=== PATIENT | male | born 1940 | race Asian ===

== ENCOUNTER 2018-03-20 05:37 | Inpatient (IN) | payer OTHER ==
[~2018-03-20] VITALS: Ht 170.2 cm; Wt 71.3 kg
[2018-03-20 05:43] VITALS: Ht 170.2 cm; Wt 71.3 kg
[2018-03-20] MEDS ORDERED: LOSARTAN POTAS100 M1 PO (06:44)
[2018-03-20] MEDS ORDERED: LIPI20 PO (06:45)
[2018-03-20] MEDS ORDERED: ALLOPURINOL100 MG PO (06:45)
[2018-03-20] MEDS ORDERED: FUROSEMIDE20 MG PO (06:45)
[2018-03-20] MEDS ORDERED: METFORMIN HYDR500 M1 PO (06:46)
[2018-03-20] MEDS ORDERED: ASPIR 8181 MG PO (06:46)
[2018-03-20] MEDS ORDERED: ALDACTONE25 MG PO (06:47)
[2018-03-20] MEDS ORDERED: METOPROLOL SUCC50 M2 PO (06:47)
[2018-03-20] MEDS ORDERED: GLUCOTROL10 MG (06:48)
[2018-03-20] MEDS ORDERED: GLUCOTROL10 MG PO (06:48)
[2018-03-20] MEDS ORDERED: TOPROL XL100 MG PO (06:49)
[2018-03-20] MEDS ORDERED: DOXAZOSIN MESYLA1 MG PO (06:50)
[2018-03-20] MEDS ORDERED: ELIQUIS5 MG PO (06:50)
[2018-03-20 06:51] LABS: CALCIUM 8.1 mg/dL (8.5-10.1); CARBON DIOXIDE 27.2 mmol/L (21-32); CHLORIDE SERUM 105 mmol/L (98-107); CREATININE SERUM 1.3 mg/dL (0.7-1.3); GLUCOSE SERUM 110 mg/dL (74-106); POTASSIUM SERUM 3.7 mmol/L (3.5-5.1); SODIUM SERUM 143 mmol/L (136-145)
[2018-03-20 06:56] LABS: ALBUMIN 3.5 g/dL (3.4-5.0); ALKALINE PHOSPHATASE 84 U/L (46-116); ALT/SGPT 34 U/L (16-63); AST/SGOT 34 U/L (15-37); BILIRUBIN TOTAL 0.44 mg/dL (0.20-1.00); TOTAL PROTEIN, SERUM 7.1 g/dL (6.4-8.2)
[2018-03-20 06:58] LABS: BASOPHIL % 0.4 % (0-2); PLATELET COUNT 154 x10^3mcL (130-400)
[2018-03-20 07:19] LABS: RED CELL DISTRIBUTION WIDTH 14.8 % (11.5-14.5)
[2018-03-20 07:22] LABS: microscopic required? YES; urine erythrocyte 3+ (NEGATIVE)
[2018-03-20 07:28] LABS: MAGNESIUM 2.4 mg/dL (1.8-2.4); PHOSPHOROUS 3.7 mg/dL (2.5-4.9)
[2018-03-20 07:32] LABS: CHOLESTEROL/HDL RATIO 2.2
[2018-03-20 07:34] LABS: T3 TOTAL 0.65 ng/mL
[2018-03-20 07:48] LABS: AMPHETAMINE QUAL UR NONE DETECTED (NEG <=1000)
[2018-03-20 08:09] LABS: FREE T4 1.03 ng/dL (0.76-1.46); FREE THYROXINE INDEX 2.5 ug/dL (1.4-4.5); T4(THYROXINE) 6.7 ug/dL (4.7-13.3)
[2018-03-20 10:34] VITALS: BP 153/90
[2018-03-20 11:54] VITALS: BP 126/79
[2018-03-20 17:21] VITALS: BP 134/85
[2018-03-20 19:20] VITALS: BP 120/76
[2018-03-21 05:27] VITALS: BP 145/84
[2018-03-21 06:27] LABS: BASOPHIL % 0.4 % (0-2); PLATELET COUNT 154 x10^3mcL (130-400)
[2018-03-21 06:50] LABS: RED CELL DISTRIBUTION WIDTH 14.9 % (11.5-14.5)
[2018-03-21 06:53] LABS: CALCIUM 8.3 mg/dL (8.5-10.1); CARBON DIOXIDE 27.7 mmol/L (21-32); CHLORIDE SERUM 108 mmol/L (98-107); CREATININE SERUM 1.1 mg/dL (0.7-1.3); GLUCOSE SERUM 74 mg/dL (74-106); POTASSIUM SERUM 4.4 mmol/L (3.5-5.1); SODIUM SERUM 144 mmol/L (136-145)
[2018-03-21 09:30] VITALS: BP 150/75
== END 2018-03-21 11:10 | disposition left against medical advice (07) | DRG 637 ==
LOC: ED 05:37 → DU 06:42
PROVIDERS: Emergency Medicine; Family Medicine
DX: E11.649 Type 2 diabetes mellitus with hypoglycemia without coma (principal); G93.41 Metabolic encephalopathy; N17.0 Acute kidney failure with tubular necrosis; I25.10 Atherosclerotic heart disease of native coronary artery without angina pectoris; I10 Essential (primary) hypertension; E78.00 Pure hypercholesterolemia, unspecified; M10.9 Gout, unspecified; N40.0 Benign prostatic hyperplasia without lower urinary tract symptoms; E78.5 Hyperlipidemia, unspecified; Z79.82 Long term (current) use of aspirin; Z68.25 Body mass index [BMI] 25.0-25.9, adult; Z95.1 Presence of aortocoronary bypass graft; Z79.84 Long term (current) use of oral hypoglycemic drugs
CPT/HCPCS: 82962; 83880; 84439; J3490; J7042; Q0092